=== PATIENT | female | born 1995 | race Caucasian/White ===

== ENCOUNTER 2017-12-23 21:25 | Emergency (ER) | payer BC ==
[~2017-12-23] VITALS: Ht 167.6 cm; Wt 73.9 kg
[2017-12-23 21:42] VITALS: BP_SYST 127
[2017-12-24 00:15] VITALS: BP_SYST 125
== END 2017-12-24 00:15 | disposition home or self-care (01) ==
LOC: SED 21:25
DX: L73.8 Other specified follicular disorders (principal); Z88.1 Allergy status to other antibiotic agents
CPT/HCPCS: 81025; 99283